=== PATIENT | female | born 1985 | race American Indian/Alaskan Native ===

== ENCOUNTER 2016-07-31 12:28 | Emergency (ER) | payer SELFPAY | END 2016-07-31 13:20 | disposition left against medical advice (07) | LOC: ED 12:28 | DX: Z46.6 Encounter for fitting and adjustment of urinary device (principal); Z53.21 Procedure and treatment not carried out due to patient leaving prior to being seen by health care provider ==

== ENCOUNTER 2017-06-27 12:15 | Outpatient (CLI) | payer MEDICAID ==
[2017-06-27 13:25] LABS: ISTAT Base Excess 3; ISTAT DEVICE 0; ISTAT HCO3 26.8; ISTAT PCO2 35.6 (35-45); ISTAT PH 7.483 (7.35-7.45); ISTAT PO2 77 (80-105); ISTAT SO2 96; ISTAT TCO2 28
--- NOTE | 2017-06-27 16:24 | XRay Report ---
FINAL REPORT EXAM: XR CHEST ROUTINE 2V HISTORY: OBESITY/PRE-OP TECHNIQUE: PA and lateral views of the chest. The PA views are lordotic in position. PRIORS: None. FINDINGS: Lines, tubes, and devices: Right jugular catheter terminates in the proximal superior vena cava. Lungs and pleura: Trachea is normal in position. Lungs are clear of infiltrate, pleural effusion, vascular congestion, or pneumothorax. Cardiomediastinal silhouette: Cardiac and mediastinal silhouettes are unremarkable. Other: Bony structures are intact. IMPRESSION: No acute cardiopulmonary process seen.
== END 2017-06-27 12:16 | disposition home or self-care (01) ==
LOC: XRAY 12:15
PROVIDERS: ATTEND Internal Medicine Critical Care Medicine
DX: Z01.818 Encounter for other preprocedural examination (principal); E66.9 Obesity, unspecified
CPT/HCPCS: 36600; 71020; 82803

== ENCOUNTER 2017-08-17 20:40 | Emergency (ER) | payer MEDICAID ==
[2017-08-17 22:25] VITALS: BP 156/90
--- NOTE | 2017-08-18 00:23 | Emergency Department Report ---
ED Female HPI - General Chief complaint: Back Pain/Injury Stated complaint: PAIN IN SIDE Time Seen by Provider: 08/18/17 00:04 Source: patient Mode of arrival: Ambulatory Limitations: Physical Limitation - History of Present Illness Initial comments: Patient here reports that she has a strong smelling odor and she wears a Mercado catheter. Patient with a history of spina bifida with Mercado catheter due to chronic urinary incontinence. Patient reports that she had the catheter in and she's been having left flank pain that is 9 out of 10 and concern for urinary tract infection. She reports that she took catheter out. Denies any nausea or vomiting. Denies any abdominal pain. Denies any trauma. Denies any fever or chills. Denies urinary burning frequency or urgency. She does have a primary care doctor that she follows MD Complaint: other (left flank pain and foul-smelling urine) Onset/Timin -: days(s) Location: other (flank) Radiation: non-radiating Severity: severe Severity scale (0 -10): 9 Quality: dull, aching Consistency: constant Improves with: none Worsens with: none Are you Now?: No Associated Symptoms: denies: vaginal discharge, vaginal bleeding, abdominal pain , nausea/vomiting, fever/chills, headaches, loss of appetite, dysuria, hematuria , rash, seizure, shortness of breath, syncope, weakness - Related Data Sexually active: No Home Medications Medication Instructions Recorded Confirmed Last Taken Insulin Lispro [Humalog 100 3 units SQ AC 08/13/15 08/13/15 08/13/15 UNITS/ML Kwikpen] Levemir Flextouch 30 units SQ HS 08/13/15 08/13/15 08/12/15 Lisinopril [Zestril TAB] 10 mg PO QDAY 08/13/15 08/13/15 08/13/15 metFORMIN [Glucophage] 500 mg PO BID 08/13/15 08/13/15 08/13/15 Previous Rx's Medication Instructions Recorded Last Taken Type Cephalexin [Keflex] 500 mg PO Q12HR #40 cap 10/14/15 Unknown Rx Sulfamethoxazole/Trimethoprim 1 each PO BID #14 tablet 10/14/15 Unknown Rx [Bactrim DS TAB] Sulfamethoxazole/Trimethoprim 1 each PO BID 7 Days #14 tablet 08/18/17 Unknown Rx [Bactrim DS TAB] Allergies Allergy/AdvReac Type Severity Reaction Status Date / Time No Known Allergies Allergy Unverified 08/13/15 13:07 ED Review of Systems ROS: Stated complaint: PAIN IN SIDE Other details as noted in HPI Comment: All other systems reviewed and negative Constitutional: no symptoms reported Respiratory: no symptoms reported Cardiovascular: denies: chest pain, palpitations, dyspnea on exertion, edema, syncope, paroxysmal nocturnal dyspnea Gastrointestinal: denies: abdominal pain, nausea, vomiting, diarrhea, constipation Genitourinary: other (reports chronic Mercado catheter with left flank pain and foul-smelling urine). denies: urgency, dysuria, frequency, hematuria, discharge Musculoskeletal: back pain. denies: joint swelling, arthralgia, myalgia Skin: denies: rash Neurological: other (patient is wheelchair bound). denies: headache ED Past Medical Hx - Past Medical History Previous Medical History?: Yes Hx Hypertension: Yes Hx Diabetes: Yes Additional medical history: Spina bifida; patient's has mercado cath - Surgical History Past Surgical History?: Yes Additional Surgical History: Left below knee amputation - Family History Family history: hypertension - Social History Smoking Status: Never Smoker Substance Use Type: Alcohol - Medications Home Medications: Home Medications Medication Instructions Recorded Confirmed Last Taken Type Insulin Lispro [Humalog 100 3 units SQ AC 08/13/15 08/13/15 08/13/15 History UNITS/ML Kwikpen] Levemir Flextouch 30 units SQ HS 08/13/15 08/13/15 08/12/15 History Lisinopril [Zestril TAB] 10 mg PO QDAY 08/13/15 08/13/15 08/13/15 History metFORMIN [Glucophage] 500 mg PO BID 08/13/15 08/13/15 08/13/15 History Cephalexin [Keflex] 500 mg PO Q12HR #40 cap 10/14/15 Unknown Rx Sulfamethoxazole/Trimethoprim 1 each PO BID #14 tablet 10/14/15 Unknown Rx [Bactrim DS TAB] Sulfamethoxazole/Trimethoprim 1 each PO BID 7 Days #14 tablet 08/18/17 Unknown Rx [Bactrim DS TAB] ED Physical Exam - General Limitations: Physical Limitation General appearance: alert, in no apparent distress - Head Head exam: Present: atraumatic, normocephalic, normal inspection - Eye Eye exam: Present: normal appearance, PERRL, EOMI Pupils: Present: normal accommodation - ENT ENT exam: Present: normal exam, normal orophraynx, mucous membranes moist - Respiratory Respiratory exam: Present: normal lung sounds bilaterally. Absent: respiratory distress, chest wall tenderness - Cardiovascular Cardiovascular Exam: Present: regular rate, normal rhythm, normal heart sounds. Absent: systolic murmur, diastolic murmur - GI/Abdominal GI/Abdominal exam: Present: soft, normal bowel sounds. Absent: distended, tenderness, guarding, rebound, rigid - Extremities Exam Extremities exam: Present: normal inspection, full ROM, normal capillary refill , other (no clubbing, cyanosis or edema. +2+ distal extremities.). Absent: tenderness, pedal edema, joint swelling, calf tenderness - Back Exam Back exam: Present: normal inspection, other (patient is wheelchair-bound). Absent: CVA tenderness (R), CVA tenderness (L), muscle spasm, paraspinal tenderness, vertebral tenderness, rash noted - Neurological Exam Neurological exam: Present: alert, oriented X3, other (wheelchair-bound) - Psychiatric Psychiatric exam: Present: normal affect, normal mood - Skin Skin exam: Present: warm, dry, intact, normal color. Absent: rash ED Course Vital Signs 08/17/17 22:16 Temperature 97.9 F Pulse Rate 84 Respiratory 16 Rate Blood Pressure 156/90 O2 Sat by Pulse 96 Oximetry - Reevaluation(s) Reevaluation #1: 08/18/17 03:17 Still awaiting urinalysis. Mercado catheter placed. Reevaluation #2: 08/18/17 03:25 Is given Rocephin 1 g IM in emergency room and Noel 5/325 2 tablets back pain. No adverse reaction. ED Medical Decision Making - Lab Data Lab Results 08/18/17 Range/Units Unknown Urine Color Yellow (Yellow) Urine Turbidity Clear (Clear) Urine pH 6.0 (5.0-7.0) Ur Specific [place] 1.005 (1.003-1.030) Urine Protein <15 mg/dl (Negative) mg/dL Urine Glucose (UA) Neg (Negative) mg/dL Urine Ketones Neg (Negative) mg/dL Urine Blood Mod (Negative) Urine Nitrite Neg (Negative) Urine Bilirubin Neg (Negative) Urine Urobilinogen < 2.0 (<2.0) mg/dL Ur Leukocyte Esterase Lg (Negative) Urine WBC (Auto) 25.0 H (0.0-6.0) /HPF Urine RBC (Auto) 1.0 (0.0-6.0) /HPF U Epithel Cells (Auto) 1.0 (0-13.0) /HPF Urine Bacteria (Auto) 3+ (Negative) /HPF Urine culture sent and pending - Medical Decision Making ED course: Pt reports foul-smelling urine with left flank pain. Urinalysis with large amount of leukocyte Estrace, positive white blood cells and positive bacteria with moderate amount of blood. Patient without any nausea or vomiting , no fever or chills. No abdominal pain and no CVA tenderness. I discussed the patient that she has a urinary tract infection and will be treated with Bactrim DS which she said works for her. She last took an 2016. Mrecado catheter placed. Urine culture pending. I discussed the patient that she needs to follow up with her primary care physician in 2-3 days. Patient given Rocephin 1 g IM in emergency room and discharged home from ED in stable condition with prescription for Bactrim DS. Critical care attestation.: If time is entered above; I have spent that time in minutes in the direct care of this critically ill patient, excluding procedure time. ED Disposition Clinical Impression: Acute cystitis with hematuria, Left flank pain, Encounter for Mercado catheter replacement Disposition: DC- TO HOME OR SELFCARE Is pt being admited?: No Does the pt Need Aspirin: No Condition: Stable Instructions: Urinary Tract Infection in Women (ED), Mercado Catheter Placement and Care (ED) Additional Instructions: Please increase her fluid intake to 2-3 L of Take Bactrim as prescribed for urinary tract infection Follow-up with your primary care physician in 2-3 days Diffuse symptoms worsens, increase in flank pain, fever and/or chills, nausea vomiting and abdominal pain. Return to the emergency room. Prescriptions: Sulfamethoxazole/Trimethoprim [Bactrim DS TAB] 1 each PO BID 7 Days #14 tablet Referrals: PRIMARY CARE, [Primary Care Provider] - 2-3 Days
[2017-08-18 03:14] LABS: Bacteria,Urine 3+ /HPF (Negative); Bilirubin,Urine NEG (Negative); Blood,Urine MOD (Negative); Color,Urine Yellow (Yellow); Nitrite,Urine NEG (Negative); Protein,Urine <15 mg/dL mg/dL (Negative); Urobilinogen,Urine < 2.0 mg/dL (<2.0)
[2017-08-18] MEDS ORDERED: NORCO 5/325 PO ONE (03:23)
[2017-08-18] MEDS ORDERED: XYLOCAINE 1% MPF 5 mL INFILTRATI ONE (03:23)
[2017-08-18] MEDS ORDERED: ROCEPHIN IM STA (03:23)
== END 2017-08-18 03:50 | disposition home or self-care (01) ==
LOC: ED 20:40
DX: N30.01 Acute cystitis with hematuria (principal); R10.30 Lower abdominal pain, unspecified; I10 Essential (primary) hypertension; E11.9 Type 2 diabetes mellitus without complications
CPT/HCPCS: 51702; 81001; 87086; 96372; 99283; J0696

== ENCOUNTER 2017-11-09 10:15 | Emergency (ER) | payer MEDICAID ==
[2017-11-09 10:32] VITALS: BP 153/82
--- NOTE | 2017-11-09 12:02 | Emergency Department Report ---
ED General Adult HPI - General Chief complaint: Medical Clearance Stated complaint: CATHETER PLACEMENT Time Seen by Provider: 11/09/17 11:57 Source: patient Mode of arrival: Ambulatory Limitations: Physical Limitation - History of Present Illness Initial comments: 32-year-old [place] female past medical history spina bifida with urinary incontinence reports that she needs her Mercado changed. Patient reports that she is urinating around the catheter for the last month and her last change of her Mercado catheter was 2 months ago. Patient reports that her supplies did not come in time for her last nurse visit therefore she was not able to get her Mercado catheter changed. Patient denies any nausea no vomiting no fever no chills no abdominal pain and pelvic pain. - Related Data Home Medications Medication Instructions Recorded Confirmed Last Taken Insulin Lispro [Humalog 100 3 units SQ AC 08/13/15 08/13/15 08/13/15 UNITS/ML Kwikpen] Levemir Flextouch 30 units SQ HS 08/13/15 08/13/15 08/12/15 Lisinopril [Zestril TAB] 10 mg PO QDAY 08/13/15 08/13/15 08/13/15 metFORMIN [Glucophage] 500 mg PO BID 08/13/15 08/13/15 08/13/15 Previous Rx's Medication Instructions Recorded Last Taken Type Cephalexin [Keflex] 500 mg PO Q12HR #40 cap 10/14/15 Unknown Rx Sulfamethoxazole/Trimethoprim 1 each PO BID #14 tablet 10/14/15 Unknown Rx [Bactrim DS TAB] Sulfamethoxazole/Trimethoprim 1 each PO BID 7 Days #14 tablet 08/18/17 Unknown Rx [Bactrim DS TAB] Allergies Allergy/AdvReac Type Severity Reaction Status Date / Time No Known Allergies Allergy Unverified 08/13/15 13:07 ED Review of Systems ROS: Stated complaint: CATHETER PLACEMENT Other details as noted in HPI Constitutional: denies: chills, fever Eyes: denies: eye pain, eye discharge, vision change ENT: denies: ear pain, throat pain Respiratory: denies: cough, shortness of breath, wheezing Cardiovascular: denies: chest pain, palpitations Endocrine: no symptoms reported Gastrointestinal: denies: abdominal pain, nausea, diarrhea Genitourinary: other (urinary incontinent). denies: urgency, dysuria, discharge Musculoskeletal: denies: back pain, joint swelling, arthralgia Skin: denies: rash, lesions Neurological: denies: headache, weakness, paresthesias Psychiatric: denies: anxiety, depression Hematological/Lymphatic: denies: easy bleeding, easy bruising ED Past Medical Hx - Past Medical History Hx Hypertension: Yes Hx Diabetes: Yes Hx Seizures: Yes Additional medical history: Spina bifida; patient's has mercado cath - Surgical History Additional Surgical History: Left below knee amputation - Social History Smoking Status: Never Smoker - Medications Home Medications: Home Medications Medication Instructions Recorded Confirmed Last Taken Type Insulin Lispro [Humalog 100 3 units SQ AC 08/13/15 08/13/15 08/13/15 History UNITS/ML Kwikpen] Levemir Flextouch 30 units SQ HS 08/13/15 08/13/15 08/12/15 History Lisinopril [Zestril TAB] 10 mg PO QDAY 08/13/15 08/13/15 08/13/15 History metFORMIN [Glucophage] 500 mg PO BID 08/13/15 08/13/15 08/13/15 History Cephalexin [Keflex] 500 mg PO Q12HR #40 cap 10/14/15 Unknown Rx Sulfamethoxazole/Trimethoprim 1 each PO BID #14 tablet 10/14/15 Unknown Rx [Bactrim DS TAB] Sulfamethoxazole/Trimethoprim 1 each PO BID 7 Days #14 tablet 08/18/17 Unknown Rx [Bactrim DS TAB] ED Physical Exam - General Limitations: Physical Limitation General appearance: alert, in no apparent distress - Head Head exam: Present: atraumatic, normocephalic - Eye Eye exam: Present: normal appearance - ENT ENT exam: Present: mucous membranes moist - Expanded Lower Extremity Exam Left Knee exam: Present: full ROM Lower Leg exam: Present: normal inspection (BKA left leg) - Neurological Exam Neurological exam: Present: alert, oriented X3 - Psychiatric Psychiatric exam: Present: normal affect, normal mood - Skin Skin exam: Present: warm, dry, intact, normal color. Absent: rash ED Course Vital Signs 11/09/17 10:29 Temperature 98.2 F Pulse Rate 83 Respiratory 16 Rate Blood Pressure 153/82 O2 Sat by Pulse 96 Oximetry ED Medical Decision Making - Medical Decision Making Patient has been interviewed by this provider fast track. I discussed with patient that we will change her Mercado catheter. We'll discharge her home to continue home health and follow with her primary care provider. Patient verbalized understanding Critical care attestation.: If time is entered above; I have spent that time in minutes in the direct care of this critically ill patient, excluding procedure time. ED Disposition Clinical Impression: Urinary incontinence, overflow Disposition: DC-01 TO HOME OR SELFCARE Is pt being admited?: No Does the pt Need Aspirin: No Condition: Stable Instructions: Urinary Incontinence (ED) Additional Instructions: Please follow-up with her home health nurse for continuation of care and Mercado changes. Referrals: PRIMARY CAREMD [Primary Care Provider] - 3-5 Days
== END 2017-11-09 12:34 | disposition home or self-care (01) ==
LOC: ED 10:15
DX: R32 Unspecified urinary incontinence (principal); I10 Essential (primary) hypertension; E11.9 Type 2 diabetes mellitus without complications
CPT/HCPCS: 51702; 99281

== ENCOUNTER 2017-11-26 15:13 | Emergency (ER) | payer MEDICAID ==
[2017-11-26 16:17] VITALS: BP 127/76
--- NOTE | 2017-11-26 18:58 | Emergency Department Report ---
ED General Adult HPI - General Chief complaint: Urogenital-Female Stated complaint: NEED MERCADO CATHETER REPLACED Time Seen by Provider: 11/26/17 18:51 Source: patient Mode of arrival: Wheelchair Limitations: Physical Limitation - History of Present Illness Initial comments: Is a 32-year-old Female who was born with spina bifida and has urinary incontinence who uses a Mercado catheter at baseline. Patient states Mercado catheter came out last night. Her home health agency was unable to come see her today and she is here requesting a catheter be replaced. Patient has no other complaints at this time. Patient states she's been incontinent throughout the day. - Related Data Home Medications Medication Instructions Recorded Confirmed Last Taken Insulin Lispro [Humalog 100 3 units SQ AC 08/13/15 08/13/15 08/13/15 UNITS/ML Kwikpen] Levemir Flextouch 30 units SQ HS 08/13/15 08/13/15 08/12/15 Lisinopril [Zestril TAB] 10 mg PO QDAY 08/13/15 08/13/15 08/13/15 metFORMIN [Glucophage] 500 mg PO BID 08/13/15 08/13/15 08/13/15 Previous Rx's Medication Instructions Recorded Last Taken Type Cephalexin [Keflex] 500 mg PO Q12HR #40 cap 10/14/15 Unknown Rx Sulfamethoxazole/Trimethoprim 1 each PO BID #14 tablet 10/14/15 Unknown Rx [Bactrim DS TAB] Sulfamethoxazole/Trimethoprim 1 each PO BID 7 Days #14 tablet 08/18/17 Unknown Rx [Bactrim DS TAB] Allergies Allergy/AdvReac Type Severity Reaction Status Date / Time No Known Allergies Allergy Unverified 08/13/15 13:07 ED Review of Systems ROS: Stated complaint: NEED MERCADO CATHETER REPLACED Other details as noted in HPI Comment: All other systems reviewed and negative ED Past Medical Hx - Past Medical History Previous Medical History?: Yes Hx Hypertension: Yes Hx Diabetes: Yes Hx Seizures: Yes Additional medical history: Spina bifida; patient's has mercado cath - Surgical History Past Surgical History?: Yes Additional Surgical History: Left below knee amputation - Social History Smoking Status: Never Smoker Substance Use Type: Alcohol, Prescribed - Medications Home Medications: Home Medications Medication Instructions Recorded Confirmed Last Taken Type Insulin Lispro [Humalog 100 3 units SQ AC 08/13/15 08/13/15 08/13/15 History UNITS/ML Kwikpen] Levemir Flextouch 30 units SQ HS 08/13/15 08/13/15 08/12/15 History Lisinopril [Zestril TAB] 10 mg PO QDAY 08/13/15 08/13/15 08/13/15 History metFORMIN [Glucophage] 500 mg PO BID 08/13/15 08/13/15 08/13/15 History Cephalexin [Keflex] 500 mg PO Q12HR #40 cap 10/14/15 Unknown Rx Sulfamethoxazole/Trimethoprim 1 each PO BID #14 tablet 10/14/15 Unknown Rx [Bactrim DS TAB] Sulfamethoxazole/Trimethoprim 1 each PO BID 7 Days #14 tablet 08/18/17 Unknown Rx [Bactrim DS TAB] ED Physical Exam - General Limitations: Physical Limitation General appearance: alert, in no apparent distress - Respiratory Respiratory exam: Absent: respiratory distress - Cardiovascular Cardiovascular Exam: Present: regular rate, normal rhythm - GI/Abdominal GI/Abdominal exam: Present: soft. Absent: distended ED Course Vital Signs 11/26/17 16:12 Temperature 98.2 F Pulse Rate 86 Respiratory 20 Rate Blood Pressure 127/76 O2 Sat by Pulse 98 Oximetry ED Medical Decision Making - Medical Decision Making She will have a Mercado catheter replaced by nursing staff be discharged home. Critical care attestation.: If time is entered above; I have spent that time in minutes in the direct care of this critically ill patient, excluding procedure time. ED Disposition Clinical Impression: Mercado catheter problem Disposition: - TO HOME OR SELFCARE Is pt being admited?: No Does the pt Need Aspirin: No Condition: Stable
== END 2017-11-26 19:20 | disposition home or self-care (01) ==
LOC: ED 15:13
DX: R32 Unspecified urinary incontinence (principal); I10 Essential (primary) hypertension; E11.9 Type 2 diabetes mellitus without complications; Z79.4 Long term (current) use of insulin
CPT/HCPCS: 51702; 99282

== ENCOUNTER 2018-07-28 22:47 | Emergency (ER) | payer MEDICAID ==
[2018-07-28] MEDS ORDERED: ZOFRAN IV ONE (23:07)
[2018-07-28] MEDS ORDERED: MORPHINE IV ONE (23:07)
--- NOTE | 2018-07-28 23:11 | Emergency Department Report ---
<KIMMY VALLE - Last Filed: 07/29/18 02:01> ED Abdominal Pain HPI - General Stated Complaint: LT SIDED FLANK PAIN Time Seen by Provider: 07/28/18 22:53 - History of Present Illness Initial Comments: Patient is 33 years old female with history of spina bifida, chronic Mercado catheter use for urinary incontinence. Patient presented to the ER complaining of left flank pain for the last 2-3 days. Patient stated that she is not producing enough urine. She denied any fever or chills. Patient also denied any nausea or vomiting. Patient stated that her catheter replaced a few days back. MD Complaint: flank pain -: days(s) Location: L flank Radiation: none Migration to: no migration Consistency: constant - Related Data Home Medications Medication Instructions Recorded Confirmed Last Taken Insulin Lispro [Humalog 100 3 units SQ AC 08/13/15 08/13/15 08/13/15 UNITS/ML Kwikpen] Levemir Flextouch 30 units SQ HS 08/13/15 08/13/15 08/12/15 Lisinopril [Zestril TAB] 10 mg PO QDAY 08/13/15 08/13/15 08/13/15 metFORMIN [Glucophage] 500 mg PO BID 08/13/15 08/13/15 08/13/15 Previous Rx's Medication Instructions Recorded Last Taken Type Sulfamethoxazole/Trimethoprim 1 each PO BID #14 tablet 10/14/15 Unknown Rx [Bactrim DS TAB] cephALEXin [Keflex] 500 mg PO Q12HR #40 cap 10/14/15 Unknown Rx Sulfamethoxazole/Trimethoprim 1 each PO BID 7 Days #14 tablet 08/18/17 Unknown Rx [Bactrim DS TAB] Ondansetron [Zofran Odt] 4 mg PO Q8HR PRN #14 tab.rapdis 07/29/18 Unknown Rx levoFLOXacin [Levaquin TAB] 500 mg PO QDAY #7 tablet 07/29/18 Unknown Rx traMADol [Ultram 50 MG tab] 50 mg PO Q4HR PRN #14 tablet 07/29/18 Unknown Rx Allergies Allergy/AdvReac Type Severity Reaction Status Date / Time No Known Allergies Allergy Verified 07/29/18 00:59 ED Review of Systems Comment: All other systems reviewed and negative Constitutional: denies: chills, fever Respiratory: denies: cough, orthopnea, shortness of breath, SOB with exertion, SOB at rest Cardiovascular: denies: chest pain, palpitations, dyspnea on exertion, orthopnea Gastrointestinal: abdominal pain. denies: nausea, vomiting, diarrhea, c onstipation, hematemesis, melena, hematochezia Musculoskeletal: back pain Neurological: denies: headache, weakness, numbness, paresthesias, confusion, abnormal gait ED Past Medical Hx - Past Medical History Hx Hypertension: Yes Hx Diabetes: Yes Hx Seizures: Yes Additional medical history: Spina bifida; patient's has mercado cath - Surgical History Additional Surgical History: Left below knee amputation - Social History Smoking Status: Never Smoker Substance Use Type: Alcohol, Prescribed - Medications Home Medications: Home Medications Medication Instructions Recorded Confirmed Last Taken Type Insulin Lispro [Humalog 100 3 units SQ AC 08/13/15 08/13/15 08/13/15 History UNITS/ML Kwikpen] Levemir Flextouch 30 units SQ HS 08/13/15 08/13/15 08/12/15 History Lisinopril [Zestril TAB] 10 mg PO QDAY 08/13/15 08/13/15 08/13/15 History metFORMIN [Glucophage] 500 mg PO BID 08/13/15 08/13/15 08/13/15 History Sulfamethoxazole/Trimethoprim 1 each PO BID #14 tablet 10/14/15 Unknown Rx [Bactrim DS TAB] cephALEXin [Keflex] 500 mg PO Q12HR #40 cap 10/14/15 Unknown Rx Sulfamethoxazole/Trimethoprim 1 each PO BID 7 Days #14 tablet 08/18/17 Unknown Rx [Bactrim DS TAB] Ondansetron [Zofran Odt] 4 mg PO Q8HR PRN #14 tab.rapdis 07/29/18 Unknown Rx levoFLOXacin [Levaquin TAB] 500 mg PO QDAY #7 tablet 07/29/18 Unknown Rx traMADol [Ultram 50 MG tab] 50 mg PO Q4HR PRN #14 tablet 07/29/18 Unknown Rx ED Physical Exam - General General appearance: alert, in no apparent distress, obese - Head Head exam: Present: atraumatic, normocephalic, normal inspection - Eye Eye exam: Present: normal appearance - ENT ENT exam: Present: normal exam, normal orophraynx, mucous membranes moist - Neck Neck exam: Present: normal inspection, full ROM. Absent: tenderness, meningismus, lymphadenopathy, thyromegaly - Respiratory Respiratory exam: Present: normal lung sounds bilaterally - Cardiovascular Cardiovascular Exam: Present: regular rate, normal rhythm, normal heart sounds - GI/Abdominal GI/Abdominal exam: Present: soft, normal bowel sounds. Absent: distended, tenderness, guarding, rebound, rigid - Extremities Exam Extremities exam: Present: normal inspection, full ROM, normal capillary refill - Back Exam Back exam: Present: CVA tenderness (L) - Neurological Exam Neurological exam: Present: alert, oriented X3 - Skin Skin exam: Present: warm, intact, normal color ED Medical Decision Making - Lab Data Result diagrams: 07/28/18 23:12 07/28/18 23:12 ED Disposition Clinical Impression: Acute flank pain, UTI (urinary tract infection) Disposition: - TO HOME OR SELFCARE Is pt being admited?: No Condition: Good Instructions: Urinary Tract Infection in Women (ED), Abdominal Pain (ED) Prescriptions: levoFLOXacin [Levaquin TAB] 500 mg PO QDAY #7 tablet Ondansetron [Zofran Odt] 4 mg PO Q8HR PRN #14 tab.rapdis PRN Reason: Nausea And Vomiting traMADol [Ultram 50 MG tab] 50 mg PO Q4HR PRN #14 tablet PRN Reason: Pain Referrals: PRIMARY CARE,MD [Primary Care Provider] - 3-5 Days <LEIDY DE SOUZA - Last Filed: 07/29/18 04:11> ED Review of Systems ROS: Stated complaint: LT SIDED FLANK PAIN Other details as noted in HPI ED Course Vital Signs 07/28/18 07/28/18 07/28/18 23:07 23:24 23:30 Temperature 100.9 F H Pulse Rate 118 H Blood Pressure 111/62 111/62 114/55 Blood Pressure [Right] O2 Sat by Pulse 100 89 Oximetry 07/28/18 07/28/18 07/28/18 23:36 23:45 23:57 Temperature Pulse Rate Blood Pressure 111/62 113/61 113/61 Blood Pressure [Right] O2 Sat by Pulse 90 87 91 Oximetry 07/29/18 07/29/18 07/29/18 00:00 00:15 00:30 Temperature Pulse Rate Blood Pressure 110/57 105/54 80/35 Blood Pressure [Right] O2 Sat by Pulse 95 91 Oximetry 07/29/18 07/29/18 07/29/18 01:15 01:45 02:35 Temperature Pulse Rate Blood Pressure 79/33 94/32 Blood Pressure 94/58 [Right] O2 Sat by Pulse 100 93 Oximetry 07/29/18 04:04 Temperature Pulse Rate 96 H Blood Pressure Blood Pressure [Right] O2 Sat by Pulse Oximetry - Reevaluation(s) Reevaluation #1: 07/29/18 04:10 Tachycardia resolved. Blood pressure in the mid to high 90s. CT scan suggests possible pyelonephritis. In addition, there was a malpositioned Mercado catheter. Nursing team has repositioned the Mercado catheter, with improvement in drainage, patient resting comfortable me at this point in time, and reports that she feels much more comfortable. Her previous physician, , has written the patient for pain medication, nausea medication, antibiotic therapy, and the patient will be discharged with instructions to follow up. Patient is observed in the emergency room for hours without clinical decompensation at this point in time. ED Medical Decision Making - Lab Data Result diagrams: 07/28/18 23:12 07/28/18 23:12 Critical care attestation.: If time is entered above; I have spent that time in minutes in the direct care of this critically ill patient, excluding procedure time. ED Disposition Is pt being admited?: No Does the pt Need Aspirin: No
[2018-07-28 23:31] LABS: Hematocrit 40.7 % (30.3-42.9); Hemoglobin 13.1 gm/dl (10.1-14.3); Mean Corpuscular HGB Conc 32 % (30-34); Mean Corpuscular Volume 76 fl (79-97); Platelet Count 162 K/mm3 (140-440); Red Blood Count 5.36 M/mm3 (3.65-5.03); Red Cell Distribution Width 18.5 % (13.2-15.2)
[2018-07-28 23:49] LABS: Alanine Aminotransferase 14 units/L (7-56); BUN/Creatinine Ratio 28; Blood Urea Nitrogen 17 mg/dL (7-17); Calcium 9.5 mg/dL (8.4-10.2); Hemolysis Index 19
[2018-07-28 23:54] LABS: Bilirubin,Direct < 0.2 mg/dL (0-0.2)
[2018-07-29 00:53] LABS: Amorphous Crystals,Urine Few; Bilirubin,Urine NEG (Negative); Blood,Urine LG (Negative); Color,Urine Yellow (Yellow); Mucus,Urine FEW /HPF
[2018-07-29] MEDS ORDERED: ROCEPHIN/NS 1 GM/50 ML 1 GM/50 ML BAG IV ONE (00:56)
[2018-07-29] MEDS ORDERED: NACL 0.9% 1000 ML 1,000 ML IV ONE (01:17)
[2018-07-29] MEDS ORDERED: NACL 0.9% 1000 ML 2,000 ML ONE (01:21)
[2018-07-29 01:28] LABS: Anisocytosis 1+; Band Neutrophils # (Manual) 0.1 K/mm3; Basophils % (Manual) 0 % (0.0-1.8); Eosinophils % (Manual) 0 % (0.0-4.3); Hypochromasia 1+; Large Platelets 1+; Monocytes % (Manual) 0 % (0.0-7.3); Total Cells Counted 100
[2018-07-29 01:29] LABS: Platelet Estimate Consistent w Auto; Poikilocytosis 1+
[2018-07-29] MEDS ORDERED: TYLENOL PO ONE (01:35)
--- NOTE | 2018-07-29 02:35 | Cat Scan Report ---
FINAL REPORT PROCEDURE: CT ABDOMEN PELVIS WO CON TECHNIQUE: Computerized axial tomography of the abdomen and pelvis was performed without intravenous contrast. This study is performed without intravascular contrast material and its sensitivity for ab dominal and pelvic pathology, including neoplasms, inflammation, abscess, free fluid, thrombosis, art erial dissection and infarction, is reduced compared with a contrast enhanced study. HISTORY: ABDOMINAL PAIN/ left flank pain COMPARISON: No prior studies are available for comparison. FINDINGS: Visualized lower thorax: No significant abnormality. Liver: Normal size and attenuation. Spleen: Normal size and attenuation. Gallbladder and biliary system: Normal. Pancreas: Normal. Adrenals: Normal. Kidneys: The right kidney is unremarkable. There is diffuse enlargement of the left kidney with possi ble hydronephrosis and hydroureter. No stones are identified. Left renal mass or pyelonephritis not e xcluded.. GI tract: There is no bowel obstruction, colitis or enteritis. The appendix is not identified.. Lymph nodes and mesentery: Normal. Vasculature: Normal. Bladder: There is a Moura catheter in the urinary bladder. The tip of the catheter extends to the lef t ureterovesical junction. This could be causing obstruction of the distal left ureter.. Reproductive organs: Uterus and ovaries are unremarkable. Peritoneum: There is no ascites or free air, abscess or adenopathy.. Musculoskeletal structures: No significant abnormality. Other: None. IMPRESSION: The right kidney is unremarkable. There is diffuse enlargement of the left kidney with possible hydronephrosis and hydroureter. No ston es are identified. Left renal mass or pyelonephritis not excluded.. There is no bowel obstruction, colitis or enteritis. The appendix is not identified.. There is a Moura catheter in the urinary bladder. The tip of the catheter extends to the left uretero vesical junction. This could be causing obstruction of the distal left ureter.. Uterus and ovaries are unremarkable. There is no ascites or free air, abscess or adenopathy. .
[2018-07-29 03:31] VITALS: BP 94/58
== END 2018-07-29 07:00 | disposition home or self-care (01) ==
LOC: ED 22:47
DX: N39.0 Urinary tract infection, site not specified (principal); I10 Essential (primary) hypertension; E11.9 Type 2 diabetes mellitus without complications; Z79.4 Long term (current) use of insulin; Z89.512 Acquired absence of left leg below knee
CPT/HCPCS: 36415; 74176; 80048; 80076; 81001; 82140; 84703; 85007; 85025; 96365; 96375; 99284; J0696; J2270; J2405; J7030

== ENCOUNTER 2019-02-13 12:44 | Emergency (ER) | payer MEDICAID ==
[2019-02-13 13:02] VITALS: BP 147/80
--- NOTE | 2019-02-13 13:04 | Event Note ---
Date: 02/13/19 33 y.o with h/o spina bifida, Morbid obesity. dm2, incontinence and mercado dependent, presents to ER with the chief complaint that her current mercado catheter is no longer working. She suspects it is defective because her urine is leaking around it. It was last put in 3 months ago. Patient was discharged from her home health company that usually changes her catheter. no fever, chills or flank pain. The initial assessment/diagnostic orders/clinical plan/treatment(s) is/are subject to change based on patient's health status,clinical progression and re- assessment by fellow clinical providers in the ED. Further treatment and workup at subsequent clinical providers discretion. Patient/guardian urged not to elope from the ED as their condition may be serious if not clinically assessed and managed.
--- NOTE | 2019-02-13 13:56 | Emergency Department Report ---
ED Female HPI - General Chief complaint: Urogenital-Female Stated complaint: NEED REYES CATH Time Seen by Provider: 02/13/19 13:46 Source: patient Mode of arrival: Ambulatory Limitations: No Limitations - History of Present Illness Initial comments: Mrs. Beverly is a 33 yo female with history of severe obesity, diabetes mellitus, urinary incontinence, spina bifida who presents with leakage around her chronic indwelling Reyes catheter. She is followed by urologist at the [facility]. She is currently undergoing evaluation for suprapubic catheter. She has been discharged from her home health [employer]. This company usually changes the Reyes Catheter. She denies fever chills or back pain. MD Complaint: other (leaking around catheter) -: Gradual, days(s) (several) Severity: mild Consistency: constant - Related Data Home Medications Medication Instructions Recorded Confirmed Last Taken Insulin Lispro [Humalog 100 3 units SQ AC 08/13/15 08/13/15 08/13/15 UNITS/ML Kwikpen] Levemir Flextouch 30 units SQ HS 08/13/15 08/13/15 08/12/15 Lisinopril [Zestril TAB] 10 mg PO QDAY 08/13/15 08/13/15 08/13/15 metFORMIN [Glucophage] 500 mg PO BID 08/13/15 08/13/15 08/13/15 Previous Rx's Medication Instructions Recorded Last Taken Type Sulfamethoxazole/Trimethoprim 1 each PO BID #14 tablet 10/14/15 Unknown Rx [Bactrim DS TAB] cephALEXin [Keflex] 500 mg PO Q12HR #40 cap 10/14/15 Unknown Rx Sulfamethoxazole/Trimethoprim 1 each PO BID 7 Days #14 tablet 08/18/17 Unknown Rx [Bactrim DS TAB] Ondansetron [Zofran Odt] 4 mg PO Q8HR PRN #14 tab.rapdis 07/29/18 Unknown Rx levoFLOXacin [Levaquin TAB] 500 mg PO QDAY #7 tablet 07/29/18 Unknown Rx traMADol [Ultram 50 MG tab] 50 mg PO Q4HR PRN #14 tablet 07/29/18 Unknown Rx Allergies Allergy/AdvReac Type Severity Reaction Status Date / Time No Known Allergies Allergy Verified 07/29/18 00:59 ED Review of Systems ROS: Stated complaint: NEED REYES CATH Other details as noted in HPI Constitutional: denies: fever, malaise Gastrointestinal: denies: abdominal pain, nausea, vomiting Genitourinary: denies: as per HPI, urgency, dysuria, frequency, hematuria, discharge Musculoskeletal: denies: back pain Skin: denies: rash, lesions Neurological: denies: headache, weakness ED Past Medical Hx - Past Medical History Previous Medical History?: Yes Hx Hypertension: Yes Hx Diabetes: Yes Hx Seizures: Yes Additional medical history: Spina bifida; patient's has reyes cath - Surgical History Past Surgical History?: Yes Additional Surgical History: Left below knee amputation - Social History Smoking Status: Never Smoker Substance Use Type: Alcohol - Medications Home Medications: Home Medications Medication Instructions Recorded Confirmed Last Taken Type Insulin Lispro [Humalog 100 3 units SQ AC 08/13/15 08/13/15 08/13/15 History UNITS/ML Kwikpen] Levemir Flextouch 30 units SQ HS 08/13/15 08/13/15 08/12/15 History Lisinopril [Zestril TAB] 10 mg PO QDAY 08/13/15 08/13/15 08/13/15 History metFORMIN [Glucophage] 500 mg PO BID 08/13/15 08/13/15 08/13/15 History Sulfamethoxazole/Trimethoprim 1 each PO BID #14 tablet 10/14/15 Unknown Rx [Bactrim DS TAB] cephALEXin [Keflex] 500 mg PO Q12HR #40 cap 10/14/15 Unknown Rx Sulfamethoxazole/Trimethoprim 1 each PO BID 7 Days #14 tablet 08/18/17 Unknown Rx [Bactrim DS TAB] Ondansetron [Zofran Odt] 4 mg PO Q8HR PRN #14 tab.rapdis 07/29/18 Unknown Rx levoFLOXacin [Levaquin TAB] 500 mg PO QDAY #7 tablet 07/29/18 Unknown Rx traMADol [Ultram 50 MG tab] 50 mg PO Q4HR PRN #14 tablet 07/29/18 Unknown Rx ED Physical Exam - General Limitations: No Limitations General appearance: alert, in no apparent distress, other (sitting in wheelchair) - Head Head exam: Present: atraumatic, normocephalic - Eye Eye exam: Present: normal appearance - ENT ENT exam: Present: mucous membranes moist - Respiratory Respiratory exam: Absent: respiratory distress - Neurological Exam Neurological exam: Present: alert, oriented X3 - Psychiatric Psychiatric exam: Present: normal affect, normal mood - Skin Skin exam: Present: warm, dry, intact, normal color. Absent: rash ED Course Vital Signs 02/13/19 13:00 Temperature 97.9 F Pulse Rate 93 H Respiratory 18 Rate Blood Pressure 147/80 O2 Sat by Pulse 94 Oximetry ED Medical Decision Making - Medical Decision Making Our nursing staff changed reyes catheter in ED. Given referral to urologist. Suspect obstructive Reyes catheter or damaged ballon as the cause of leakage Critical care attestation.: If time is entered above; I have spent that time in minutes in the direct care of this critically ill patient, excluding procedure time. ED Disposition Clinical Impression: Indwelling Reyes catheter present, Reyes catheter problem Disposition: - TO HOME OR SELFCARE Is pt being admited?: No Does the pt Need Aspirin: No Condition: Stable Instructions: Reyes Catheter Placement and Care (ED) Referrals: RENEE SANCHEZ MD [Staff Physician] - 3-5 Days
== END 2019-02-13 15:42 | disposition home or self-care (01) ==
LOC: ED 12:44
DX: T83.038A Leakage of other urinary catheter, initial encounter (principal); I10 Essential (primary) hypertension; E11.9 Type 2 diabetes mellitus without complications; Z98.890 Other specified postprocedural states; Z79.899 Other long term (current) drug therapy; Y92.89 Other specified places as the place of occurrence of the external cause
CPT/HCPCS: 51702; 99282

== ENCOUNTER 2019-08-28 17:22 | Emergency (ER) | payer MEDICAID ==
--- NOTE | 2019-08-28 20:21 | Emergency Department Report ---
Chief Complaint: Urogenital-Female Stated Complaint: NO MERCADO FOR 4DAYS - HPI History of Present Illness: The pt is a 34 y/o F p/w a cc of "needing fol3ey." The pt states she has a h/o urinary incontinence and has an indwelling mercado that was accidently pulled out 08/24/2019. The pt states is was an 18fr mercado but she needs a larger balloon size. The pt states she was having difficulty getting a new Mercado catheter through her home health nurse - Exam Vital Signs: Vital Signs 08/28/19 20:20 Temperature 97.5 F L Pulse Rate 86 Respiratory 20 Rate Blood Pressure 137/91 O2 Sat by Pulse 97 Oximetry MSE screening note: Focused history and physical exam performed. Due to findings the following was ordered: u/a, uhcg Mercado ED Disposition for MSE Condition: Stable
[2019-08-28 20:23] VITALS: BP 137/91
--- NOTE | 2019-08-28 23:14 | Emergency Department Report ---
ED Female HPI - General Chief complaint: Urogenital-Female Stated complaint: NO MERCADO FOR 4DAYS Time Seen by Provider: 08/28/19 22:13 Source: patient Mode of arrival: Ambulatory Limitations: No Limitations - History of Present Illness Initial comments: Patient is a 34-year-old [place] female who has a past medical history of spina bifida who is wheelchair dependent who is presenting with urinary incontinence. Patient normally uses a Mercdao catheter to drain her urine. Patient states FELL OUT 4 DAYS AGO AND SHE'S BEEN UNABLE TO GET A HOME HEALTH AGENCY TO COME HELP HER REPLACE IT. PATIENT IS UNABLE TO STRAIGHT CATH HERSELF AT HOME. PATIENT DENIES ANY PAIN NAUSEA VOMITING, COLD CONGESTION OR ABDOMINAL PAIN. PATIENT DOES HAVE SOME IRRITATION AND SKIN BREAKDOWN SECONDARY TO URINE SOAKED INTO HER CLOTHING AND ON HER WHEELCHAIR. - Related Data Home Medications Medication Instructions Recorded Confirmed Last Taken Insulin Lispro [Humalog 100 3 units SQ AC 08/13/15 08/13/15 08/13/15 UNITS/ML Kwikpen] Levemir Flextouch 30 units SQ HS 08/13/15 08/13/15 08/12/15 lisinopriL [Zestril TAB] 10 mg PO QDAY 08/13/15 08/13/15 08/13/15 metFORMIN [Glucophage] 500 mg PO BID 08/13/15 08/13/15 08/13/15 Previous Rx's Medication Instructions Recorded Last Taken Type Sulfamethoxazole/Trimethoprim 1 each PO BID #14 tablet 10/14/15 Unknown Rx [Bactrim DS TAB] cephALEXin [Keflex] 500 mg PO Q12HR #40 cap 10/14/15 Unknown Rx Sulfamethoxazole/Trimethoprim 1 each PO BID 7 Days #14 tablet 08/18/17 Unknown Rx [Bactrim DS TAB] Ondansetron [Zofran Odt] 4 mg PO Q8HR PRN #14 tab.rapdis 07/29/18 Unknown Rx levoFLOXacin [Levaquin TAB] 500 mg PO QDAY #7 tablet 07/29/18 Unknown Rx traMADoL [Ultram 50 MG tab] 50 mg PO Q4HR PRN #14 tablet 07/29/18 Unknown Rx cephALEXin [Keflex] 500 mg PO TID 10 Days #30 cap 02/13/19 Unknown Rx Allergies Allergy/AdvReac Type Severity Reaction Status Date / Time No Known Allergies Allergy Verified 07/29/18 00:59 ED Review of Systems ROS: Stated complaint: NO MERCADO FOR 4DAYS Other details as noted in HPI Comment: All other systems reviewed and negative ED Past Medical Hx - Past Medical History Previous Medical History?: Yes Hx Hypertension: Yes Hx Diabetes: Yes Hx Seizures: Yes Additional medical history: Spina bifida; patient's has mercado cath, MORBID OBESITY - Surgical History Past Surgical History?: Yes Additional Surgical History: Left below knee amputation - Social History Smoking Status: Never Smoker Substance Use Type: None - Medications Home Medications: Home Medications Medication Instructions Recorded Confirmed Last Taken Type Insulin Lispro [Humalog 100 3 units SQ AC 08/13/15 08/13/15 08/13/15 History UNITS/ML Kwikpen] Levemir Flextouch 30 units SQ HS 08/13/15 08/13/15 08/12/15 History lisinopriL [Zestril TAB] 10 mg PO QDAY 08/13/15 08/13/15 08/13/15 History metFORMIN [Glucophage] 500 mg PO BID 08/13/15 08/13/15 08/13/15 History Sulfamethoxazole/Trimethoprim 1 each PO BID #14 tablet 10/14/15 Unknown Rx [Bactrim DS TAB] cephALEXin [Keflex] 500 mg PO Q12HR #40 cap 10/14/15 Unknown Rx Sulfamethoxazole/Trimethoprim 1 each PO BID 7 Days #14 tablet 08/18/17 Unknown Rx [Bactrim DS TAB] Ondansetron [Zofran Odt] 4 mg PO Q8HR PRN #14 tab.rapdis 07/29/18 Unknown Rx levoFLOXacin [Levaquin TAB] 500 mg PO QDAY #7 tablet 07/29/18 Unknown Rx traMADoL [Ultram 50 MG tab] 50 mg PO Q4HR PRN #14 tablet 07/29/18 Unknown Rx cephALEXin [Keflex] 500 mg PO TID 10 Days #30 cap 02/13/19 Unknown Rx ED Physical Exam - General Limitations: No Limitations General appearance: alert, in no apparent distress - Head Head exam: Present: atraumatic, normocephalic - Eye Eye exam: Present: normal appearance - ENT ENT exam: Present: mucous membranes moist - Neck Neck exam: Present: normal inspection - Respiratory Respiratory exam: Present: normal lung sounds bilaterally. Absent: respiratory distress, wheezes, rales, rhonchi - Cardiovascular Cardiovascular Exam: Present: regular rate, normal rhythm. Absent: systolic murmur, diastolic murmur, rubs, gallop - GI/Abdominal GI/Abdominal exam: Present: soft, normal bowel sounds - Extremities Exam Extremities exam: Present: normal inspection - Back Exam Back exam: Present: normal inspection - Neurological Exam Neurological exam: Present: alert, oriented X3 - Psychiatric Psychiatric exam: Present: normal affect, normal mood - Skin Skin exam: Present: warm, dry, intact, normal color. Absent: rash ED Course Vital Signs 08/28/19 20:20 Temperature 97.5 F L Pulse Rate 86 Respiratory 20 Rate Blood Pressure 137/91 O2 Sat by Pulse 97 Oximetry ED Medical Decision Making - Medical Decision Making We were able to locate a Mercado catheter that was suitable for this patient. Patient does require larger balloon then what is presented in the standard Mercado catheter kit. Patient had a Mercado catheter replaced our nursing staff. Please see their documentation on the catheter placement. Patient to be discharged home in stable condition. Critical care attestation.: If time is entered above; I have spent that time in minutes in the direct care of this critically ill patient, excluding procedure time. ED Disposition Clinical Impression: Urinary incontinence due to severe physical disability Mercado catheter problem Qualifiers: Encounter type: initial encounter Qualified Code(s): T83.9XXA - Unspecified complication of genitourinary prosthetic device, implant and graft, initial encounter Disposition: DC-01 TO HOME OR SELFCARE Is pt being admited?: No Does the pt Need Aspirin: No Condition: Stable Referrals: ALEX EID MD [Primary Care Provider] - 3-5 Days Time of Disposition: 00:07
== END 2019-08-29 00:15 | disposition home or self-care (01) ==
LOC: ED 17:22
DX: R32 Unspecified urinary incontinence (principal); T83.098A Other mechanical complication of other urinary catheter, initial encounter; I10 Essential (primary) hypertension; E11.9 Type 2 diabetes mellitus without complications; E66.01 Morbid (severe) obesity due to excess calories; Z68.45 Body mass index [BMI] 70 or greater, adult; Z79.899 Other long term (current) drug therapy
CPT/HCPCS: 51702

== ENCOUNTER 2019-12-16 12:56 | Emergency (ER) | payer MEDICAID ==
[2019-12-16 13:51] VITALS: BP 153/56
--- NOTE | 2019-12-16 14:20 | Emergency Department Report ---
ED Female HPI - General Chief complaint: Urogenital-Female Stated complaint: NEEDS REYES INSERTED Time Seen by Provider: 12/16/19 14:16 Source: patient Mode of arrival: Wheelchair Limitations: Physical Limitation - History of Present Illness Initial comments: Ms. Beverly is a very pleasant 34-year-old -Martiniquais female with past medical history of severe obesity, diabetes mellitus, spina bifida, urinary incontinence who presents to the emergency department seeking reinsertion of a form of a Reyes for which she usually has a chronic indwelling catheter. The Reyes catheter came out while she was at home after experiencing some leakage around the catheter. She is unsure if she has a ruptured balloon problem. She is followed by by the urologist at the [facility]. She reports no fever, chills, sweats,, flank pain, headache, rashes, dizziness but is suspicious of having a urinary tract infection and would like that to be treated or evaluated as well Consistency: constant Improves with: none Worsens with: none Are you Now?: No Associated Symptoms: denies: vaginal discharge, vaginal bleeding, abdominal pain, nausea/vomiting, headaches, loss of appetite, dysuria, hematuria, shortness of breath, syncope, weakness - Related Data Home Medications Medication Instructions Recorded Confirmed Last Taken Insulin Lispro [Humalog 100 3 units SQ AC 08/13/15 08/13/15 08/13/15 UNITS/ML Kwikpen] Levemir Flextouch 30 units SQ HS 08/13/15 08/13/15 08/12/15 lisinopriL [Zestril TAB] 10 mg PO QDAY 08/13/15 08/13/15 08/13/15 metFORMIN [Glucophage] 500 mg PO BID 08/13/15 08/13/15 08/13/15 Previous Rx's Medication Instructions Recorded Last Taken Type Sulfamethoxazole/Trimethoprim 1 each PO BID #14 tablet 10/14/15 Unknown Rx [Bactrim DS TAB] cephALEXin [Keflex] 500 mg PO Q12HR #40 cap 10/14/15 Unknown Rx Sulfamethoxazole/Trimethoprim 1 each PO BID 7 Days #14 tablet 08/18/17 Unknown Rx [Bactrim DS TAB] Ondansetron [Zofran Odt] 4 mg PO Q8HR PRN #14 tab.rapdis 07/29/18 Unknown Rx levoFLOXacin [Levaquin TAB] 500 mg PO QDAY #7 tablet 07/29/18 Unknown Rx traMADoL [Ultram 50 MG tab] 50 mg PO Q4HR PRN #14 tablet 07/29/18 Unknown Rx cephALEXin [Keflex] 500 mg PO TID 10 Days #30 cap 02/13/19 Unknown Rx Sulfamethoxazole/Trimethoprim 1 each PO BID #20 tablet 12/16/19 Unknown Rx [Bactrim DS TAB] Allergies Allergy/AdvReac Type Severity Reaction Status Date / Time latex Allergy Unknown Verified 12/16/19 13:43 ED Review of Systems ROS: Stated complaint: NEEDS REYES INSERTED Other details as noted in HPI Comment: All other systems reviewed and negative ED Past Medical Hx - Past Medical History Previous Medical History?: Yes Hx Hypertension: Yes Hx Diabetes: Yes Hx Seizures: Yes Additional medical history: Spina bifida; patient's has reyes cath, MORBID OBESITY - Surgical History Past Surgical History?: Yes Additional Surgical History: Left below knee amputation - Social History Smoking Status: Never Smoker Substance Use Type: Alcohol - Medications Home Medications: Home Medications Medication Instructions Recorded Confirmed Last Taken Type Insulin Lispro [Humalog 100 3 units SQ AC 08/13/15 08/13/15 08/13/15 History UNITS/ML Kwikpen] Levemir Flextouch 30 units SQ HS 08/13/15 08/13/15 08/12/15 History lisinopriL [Zestril TAB] 10 mg PO QDAY 08/13/15 08/13/15 08/13/15 History metFORMIN [Glucophage] 500 mg PO BID 08/13/15 08/13/15 08/13/15 History Sulfamethoxazole/Trimethoprim 1 each PO BID #14 tablet 10/14/15 Unknown Rx [Bactrim DS TAB] cephALEXin [Keflex] 500 mg PO Q12HR #40 cap 10/14/15 Unknown Rx Sulfamethoxazole/Trimethoprim 1 each PO BID 7 Days #14 tablet 08/18/17 Unknown Rx [Bactrim DS TAB] Ondansetron [Zofran Odt] 4 mg PO Q8HR PRN #14 tab.rapdis 07/29/18 Unknown Rx levoFLOXacin [Levaquin TAB] 500 mg PO QDAY #7 tablet 07/29/18 Unknown Rx traMADoL [Ultram 50 MG tab] 50 mg PO Q4HR PRN #14 tablet 07/29/18 Unknown Rx cephALEXin [Keflex] 500 mg PO TID 10 Days #30 cap 02/13/19 Unknown Rx Sulfamethoxazole/Trimethoprim 1 each PO BID #20 tablet 12/16/19 Unknown Rx [Bactrim DS TAB] ED Physical Exam - General Limitations: Physical Limitation General appearance: alert, in no apparent distress - Head Head exam: Present: atraumatic, normocephalic - Eye Eye exam: Present: normal appearance, PERRL, EOMI Pupils: Present: normal accommodation - ENT ENT exam: Present: normal exam, normal orophraynx, mucous membranes moist, TM's normal bilaterally - Neck Neck exam: Present: normal inspection, full ROM - Respiratory Respiratory exam: Present: normal lung sounds bilaterally. Absent: respiratory distress, wheezes, rales, chest wall tenderness, accessory muscle use, decreased breath sounds - Cardiovascular Cardiovascular Exam: Present: regular rate, normal rhythm. Absent: systolic murmur, diastolic murmur, rubs, gallop - GI/Abdominal GI/Abdominal exam: Present: soft, normal bowel sounds. Absent: tenderness - Extremities Exam Extremities exam: Present: normal inspection - Back Exam Back exam: Present: normal inspection - Neurological Exam Neurological exam: Present: alert, oriented X3 - Psychiatric Psychiatric exam: Present: normal affect, normal mood - Skin Skin exam: Present: warm, dry, intact, normal color. Absent: rash ED Course Vital Signs 12/16/19 13:33 Temperature 98.3 F Pulse Rate 77 Respiratory 17 Rate Blood Pressure 153/56 O2 Sat by Pulse 93 Oximetry ED Medical Decision Making - Medical Decision Making 34-year-old female chronic Reyes indwelling catheter which became dislodged. The Reyes catheter was replaced while in the emergency department and she was also started on antibiotics for her dysuria. Is been advised to follow-up with her usual for her urologist for further evaluation and treatment options Critical care attestation.: If time is entered above; I have spent that time in minutes in the direct care of this critically ill patient, excluding procedure time. ED Disposition Clinical Impression: Reyes catheter problem, Encounter for Reyes catheter replacement, Dysuria Disposition: TO HOME OR SELFCARE Is pt being admited?: No Does the pt Need Aspirin: No Condition: Stable Instructions: Dysuria (ED), Reyes Catheter Placement and Care (ED) Prescriptions: Sulfamethoxazole/Trimethoprim [Bactrim DS TAB] 1 each PO BID #20 tablet Referrals: PRIMARY CAREMD [Referring] - 3-5 Days (Please follow-up with a urologist at the [facility]) PATRICIO ZAVALAYJUNE [Provider Group] - 3-5 Days (This is an alternative urology group should you so need need to follow-up with another provider)
== END 2019-12-16 15:45 | disposition home or self-care (01) ==
LOC: ED 12:56
DX: T83.091A Other mechanical complication of indwelling urethral catheter, initial encounter (principal); R30.0 Dysuria; I10 Essential (primary) hypertension; E11.9 Type 2 diabetes mellitus without complications; R56.9 Unspecified convulsions; Z89.512 Acquired absence of left leg below knee; Z79.4 Long term (current) use of insulin; Z79.84 Long term (current) use of oral hypoglycemic drugs; Z79.899 Other long term (current) drug therapy; Z91.040 Latex allergy status; X58.XXXA Exposure to other specified factors, initial encounter; Y93.89 Activity, other specified; Y92.89 Other specified places as the place of occurrence of the external cause; Y99.8 Other external cause status
CPT/HCPCS: 51702; 99282

== ENCOUNTER 2020-03-14 09:44 | Emergency (ER) | payer MEDICAID ==
[2020-03-14 09:52] VITALS: BP 151/86
--- NOTE | 2020-03-14 11:56 | Emergency Department Report ---
ED General Adult HPI - General Chief complaint: Medical Clearance Stated complaint: NEED A MERCADO CATHETER Time Seen by Provider: 03/14/20 11:43 Source: patient Mode of arrival: Wheelchair Limitations: No Limitations - History of Present Illness Initial comments: Patient is 34 years old morbidly obese female with history of chronic urinary incontinence. Patient is using Mercado catheter regularly. Patient presented to the ER asking for replacing her Mercado catheter because it is leaking. Patient stated that she has a home health nurse that help out with that however she is unable to get in touch with her recently. Patient denies any other symptoms specifically no fever, chills, nausea or vomiting. - Related Data Home Medications Medication Instructions Recorded Confirmed Last Taken Insulin Lispro [Humalog 100 3 units SQ AC 08/13/15 08/13/15 08/13/15 UNITS/ML Kwikpen] Levemir Flextouch 30 units SQ HS 08/13/15 08/13/15 08/12/15 lisinopriL [Zestril TAB] 10 mg PO QDAY 08/13/15 08/13/15 08/13/15 metFORMIN [Glucophage] 500 mg PO BID 08/13/15 08/13/15 08/13/15 Previous Rx's Medication Instructions Recorded Last Taken Type Sulfamethoxazole/Trimethoprim 1 each PO BID #14 tablet 10/14/15 Unknown Rx [Bactrim DS TAB] cephALEXin [Keflex] 500 mg PO Q12HR #40 cap 10/14/15 Unknown Rx Sulfamethoxazole/Trimethoprim 1 each PO BID 7 Days #14 tablet 08/18/17 Unknown Rx [Bactrim DS TAB] Ondansetron [Zofran Odt] 4 mg PO Q8HR PRN #14 tab.rapdis 07/29/18 Unknown Rx levoFLOXacin [Levaquin TAB] 500 mg PO QDAY #7 tablet 07/29/18 Unknown Rx traMADoL [Ultram 50 MG tab] 50 mg PO Q4HR PRN #14 tablet 07/29/18 Unknown Rx cephALEXin [Keflex] 500 mg PO TID 10 Days #30 cap 02/13/19 Unknown Rx Sulfamethoxazole/Trimethoprim 1 each PO BID #20 tablet 12/16/19 Unknown Rx [Bactrim DS TAB] cephALEXin [Keflex] 500 mg PO Q12HR #21 cap 01/31/20 Unknown Rx Allergies Allergy/AdvReac Type Severity Reaction Status Date / Time latex Allergy Unknown Verified 02/23/20 09:46 ED Review of Systems ROS: Stated complaint: NEED A MERCADO CATHETER Other details as noted in HPI Comment: All other systems reviewed and negative Constitutional: denies: chills, fever Respiratory: denies: cough, shortness of breath Cardiovascular: denies: chest pain Gastrointestinal: denies: abdominal pain Genitourinary: other (Urinary incontinence) ED Past Medical Hx - Past Medical History Hx Hypertension: Yes Hx Diabetes: Yes Hx Seizures: Yes Additional medical history: Spina bifida; patient's has mercado cath, MORBID OBESITY - Surgical History Additional Surgical History: Left below knee amputation - Social History Smoking Status: Never Smoker - Medications Home Medications: Home Medications Medication Instructions Recorded Confirmed Last Taken Type Insulin Lispro [Humalog 100 3 units SQ AC 08/13/15 08/13/15 08/13/15 History UNITS/ML Kwikpen] Levemir Flextouch 30 units SQ HS 08/13/15 08/13/15 08/12/15 History lisinopriL [Zestril TAB] 10 mg PO QDAY 08/13/15 08/13/15 08/13/15 History metFORMIN [Glucophage] 500 mg PO BID 08/13/15 08/13/15 08/13/15 History Sulfamethoxazole/Trimethoprim 1 each PO BID #14 tablet 10/14/15 Unknown Rx [Bactrim DS TAB] cephALEXin [Keflex] 500 mg PO Q12HR #40 cap 10/14/15 Unknown Rx Sulfamethoxazole/Trimethoprim 1 each PO BID 7 Days #14 tablet 08/18/17 Unknown Rx [Bactrim DS TAB] Ondansetron [Zofran Odt] 4 mg PO Q8HR PRN #14 tab.rapdis 07/29/18 Unknown Rx levoFLOXacin [Levaquin TAB] 500 mg PO QDAY #7 tablet 07/29/18 Unknown Rx traMADoL [Ultram 50 MG tab] 50 mg PO Q4HR PRN #14 tablet 07/29/18 Unknown Rx cephALEXin [Keflex] 500 mg PO TID 10 Days #30 cap 02/13/19 Unknown Rx Sulfamethoxazole/Trimethoprim 1 each PO BID #20 tablet 12/16/19 Unknown Rx [Bactrim DS TAB] cephALEXin [Keflex] 500 mg PO Q12HR #21 cap 01/31/20 Unknown Rx ED Physical Exam - General Limitations: No Limitations General appearance: alert, in no apparent distress - ENT ENT exam: Present: normal exam - Neck Neck exam: Present: normal inspection - Respiratory Respiratory exam: Present: normal lung sounds bilaterally - Cardiovascular Cardiovascular Exam: Present: regular rate, normal rhythm, normal heart sounds - GI/Abdominal GI/Abdominal exam: Present: soft, normal bowel sounds. Absent: distended, tenderness, guarding, rebound, rigid - Extremities Exam Extremities exam: Present: normal inspection, normal capillary refill - Back Exam Back exam: Present: normal inspection, full ROM. Absent: CVA tenderness (R), CVA tenderness (L) - Neurological Exam Neurological exam: Present: alert, oriented X3, CN II-XII intact - Skin Skin exam: Present: warm, intact, normal color ED Course Vital Signs 03/14/20 09:50 Temperature 97.7 F Pulse Rate 79 Respiratory 18 Rate Blood Pressure 151/86 O2 Sat by Pulse 93 Oximetry ED Medical Decision Making - Medical Decision Making Patient is 34 years old morbidly obese female with history of chronic urinary incontinence. Patient is using Mercado catheter regularly. Patient presented to the ER asking for replacing her Mercado catheter because it is leaking. Patient stated that she has a home health nurse that help out with that however she is unable to get in touch with her recently. Patient denies any other symptoms specifically no fever, chills, nausea or vomiting. Mercado replaced in the ER with no complication. Critical care attestation.: If time is entered above; I have spent that time in minutes in the direct care of this critically ill patient, excluding procedure time. ED Disposition Clinical Impression: Urinary incontinence, Mercado catheter problem Disposition: DC-01 TO HOME OR SELFCARE Is pt being admited?: No Condition: Stable Instructions: Mercado Catheter Placement and Care (ED) Referrals: PRIMARY CARE,MD [Primary Care Provider] - 3-5 Days
== END 2020-03-14 12:35 | disposition home or self-care (01) ==
LOC: ED 09:44
DX: R32 Unspecified urinary incontinence (principal); I10 Essential (primary) hypertension; E11.9 Type 2 diabetes mellitus without complications; Z86.69 Personal history of other diseases of the nervous system and sense organs; Z79.899 Other long term (current) drug therapy; Z91.013 Allergy to seafood; Z98.890 Other specified postprocedural states
CPT/HCPCS: 51702; 99282

== ENCOUNTER 2020-04-13 10:09 | Emergency (ER) | payer MEDICAID ==
--- NOTE | 2020-04-13 11:45 | Emergency Department Report ---
ED General Adult HPI - General Chief complaint: Tube Replacement Stated complaint: REYES LEAKING Time Seen by Provider: 04/13/20 11:17 Source: patient Mode of arrival: Ambulatory Limitations: No Limitations - History of Present Illness Initial comments: This is a 34-year-old female nontoxic, well nourished in appearance, no acute signs of distress presents to the ED with c/o of Reyes catheter leakage. Patient has a history of urinary incontinence and has a catheter placed. Patient states does have a urologist follow-up in May due to no availa bilities. Patient otherwise denies any symptoms. Denies any flank pain, headache, stiff neck, numbness, tingling, abdominal pain or pelvic pain. -: days(s) Severity scale (0 -10): 0 Associated Symptoms: denies other symptoms. denies: confusion, chest pain, cough, diaphoresis, fever/chills, headaches, loss of appetite, malaise, nausea/vomiting, rash, seizure, shortness of breath, syncope, weakness Treatments Prior to Arrival: none - Related Data Home Medications Medication Instructions Recorded Confirmed Last Taken Insulin Lispro [Humalog 100 3 units SQ AC 08/13/15 08/13/15 08/13/15 UNITS/ML Kwikpen] Levemir Flextouch 30 units SQ HS 08/13/15 08/13/15 08/12/15 lisinopriL [Zestril TAB] 10 mg PO QDAY 08/13/15 08/13/15 08/13/15 metFORMIN [Glucophage] 500 mg PO BID 08/13/15 08/13/15 08/13/15 Previous Rx's Medication Instructions Recorded Last Taken Type Sulfamethoxazole/Trimethoprim 1 each PO BID #14 tablet 10/14/15 Unknown Rx [Bactrim DS TAB] cephALEXin [Keflex] 500 mg PO Q12HR #40 cap 10/14/15 Unknown Rx Sulfamethoxazole/Trimethoprim 1 each PO BID 7 Days #14 tablet 08/18/17 Unknown Rx [Bactrim DS TAB] Ondansetron [Zofran Odt] 4 mg PO Q8HR PRN #14 tab.rapdis 07/29/18 Unknown Rx levoFLOXacin [Levaquin TAB] 500 mg PO QDAY #7 tablet 07/29/18 Unknown Rx traMADoL [Ultram 50 MG tab] 50 mg PO Q4HR PRN #14 tablet 07/29/18 Unknown Rx cephALEXin [Keflex] 500 mg PO TID 10 Days #30 cap 02/13/19 Unknown Rx Sulfamethoxazole/Trimethoprim 1 each PO BID #20 tablet 12/16/19 Unknown Rx [Bactrim DS TAB] cephALEXin [Keflex] 500 mg PO Q12HR #21 cap 01/31/20 Unknown Rx Allergies Allergy/AdvReac Type Severity Reaction Status Date / Time latex Allergy Unknown Verified 04/13/20 10:41 ED Review of Systems ROS: Stated complaint: REYES LEAKING Other details as noted in HPI Constitutional: denies: chills, fever Eyes: denies: eye pain, eye discharge, vision change ENT: denies: ear pain, throat pain Respiratory: denies: cough, shortness of breath, wheezing Cardiovascular: denies: chest pain, palpitations Endocrine: no symptoms reported Gastrointestinal: denies: abdominal pain, nausea, diarrhea Genitourinary: denies: urgency, dysuria, discharge Musculoskeletal: denies: back pain, joint swelling, arthralgia Skin: denies: rash, lesions Neurological: denies: headache, weakness, paresthesias Psychiatric: denies: anxiety, depression Hematological/Lymphatic: denies: easy bleeding, easy bruising ED Past Medical Hx - Past Medical History Previous Medical History?: Yes Hx Hypertension: Yes Hx Diabetes: Yes Hx Seizures: Yes Additional medical history: Spina bifida; patient's has reyes cath, MORBID OBESITY - Surgical History Past Surgical History?: Yes Additional Surgical History: Left below knee amputation - Social History Smoking Status: Never Smoker Substance Use Type: None - Medications Home Medications: Home Medications Medication Instructions Recorded Confirmed Last Taken Type Insulin Lispro [Humalog 100 3 units SQ AC 08/13/15 08/13/15 08/13/15 History UNITS/ML Kwikpen] Levemir Flextouch 30 units SQ HS 08/13/15 08/13/15 08/12/15 History lisinopriL [Zestril TAB] 10 mg PO QDAY 08/13/15 08/13/15 08/13/15 History metFORMIN [Glucophage] 500 mg PO BID 08/13/15 08/13/15 08/13/15 History Sulfamethoxazole/Trimethoprim 1 each PO BID #14 tablet 10/14/15 Unknown Rx [Bactrim DS TAB] cephALEXin [Keflex] 500 mg PO Q12HR #40 cap 10/14/15 Unknown Rx Sulfamethoxazole/Trimethoprim 1 each PO BID 7 Days #14 tablet 08/18/17 Unknown Rx [Bactrim DS TAB] Ondansetron [Zofran Odt] 4 mg PO Q8HR PRN #14 tab.rapdis 07/29/18 Unknown Rx levoFLOXacin [Levaquin TAB] 500 mg PO QDAY #7 tablet 07/29/18 Unknown Rx traMADoL [Ultram 50 MG tab] 50 mg PO Q4HR PRN #14 tablet 07/29/18 Unknown Rx cephALEXin [Keflex] 500 mg PO TID 10 Days #30 cap 02/13/19 Unknown Rx Sulfamethoxazole/Trimethoprim 1 each PO BID #20 tablet 12/16/19 Unknown Rx [Bactrim DS TAB] cephALEXin [Keflex] 500 mg PO Q12HR #21 cap 01/31/20 Unknown Rx ED Physical Exam - General Limitations: No Limitations General appearance: alert, in no apparent distress - Head Head exam: Present: atraumatic, normocephalic - Neck Neck exam: Present: normal inspection, full ROM - Respiratory Respiratory exam: Absent: respiratory distress - Cardiovascular Cardiovascular Exam: Present: regular rate - GI/Abdominal GI/Abdominal exam: Present: soft, normal bowel sounds. Absent: distended, tenderness, guarding, rebound, rigid, diminished bowel sounds - Neurological Exam Neurological exam: Present: alert, oriented X3 - Psychiatric Psychiatric exam: Present: normal affect, normal mood - Skin Skin exam: Present: warm, dry, intact, normal color. Absent: rash ED Course Vital Signs 04/13/20 10:34 Temperature 98.3 F Pulse Rate 89 Respiratory 20 Rate Blood Pressure 153/96 O2 Sat by Pulse 95 Oximetry - Reevaluation(s) Reevaluation #1: 04/13/20 11:47 Patient is speaking in full sentences with no signs of distress noted. ED Medical Decision Making - Medical Decision Making 34-year-old female that presents with urinary incontinence with Reyes change. Patient is stable and was examined by me. Reyes change has been performed by RN. Patient tolerated well. Good urine output. Patient was instructed to follow-up with a primary care doctor in 3-5 days or if symptoms worsen and continue return to emergency room as soon as possible. At time of discharge, the patient does not seem toxic or ill in appearance. No acute signs of distress noted. Patient agrees to discharge treatment plan of care. No further questions noted by the patient. Critical care attestation.: If time is entered above; I have spent that time in minutes in the direct care of this critically ill patient, excluding procedure time. ED Disposition Clinical Impression: Urinary catheter (Reyes) change required Disposition: - TO HOME OR SELFCARE Is pt being admited?: No Does the pt Need Aspirin: No Condition: Stable Instructions: Reyes Catheter Placement and Care (ED) Additional Instructions: Follow-up with a primary care doctor in 3-5 days or if symptoms worsen and continue return to emergency room as soon as possible. Referrals: PRIMARY CAREMD [Referring] - 3-5 Days JAIDA SAVAGE MD [Staff Physician] - 3-5 Days RENEE SANCHEZ MD [Staff Physician] - 3-5 Days [facility] [Provider Group] - 3-5 Days
[2020-04-13 11:46] VITALS: BP 153/96
== END 2020-04-13 12:30 | disposition home or self-care (01) ==
LOC: ED 10:09
DX: T83.038A Leakage of other urinary catheter, initial encounter (principal); R32 Unspecified urinary incontinence; I10 Essential (primary) hypertension; E11.9 Type 2 diabetes mellitus without complications; R56.9 Unspecified convulsions; Z89.512 Acquired absence of left leg below knee; Z79.4 Long term (current) use of insulin; Z79.84 Long term (current) use of oral hypoglycemic drugs; Z79.899 Other long term (current) drug therapy; Z91.040 Latex allergy status; Y92.89 Other specified places as the place of occurrence of the external cause
CPT/HCPCS: 51702; 99281

== ENCOUNTER 2020-05-09 10:54 | Emergency (ER) | payer MEDICAID ==
--- NOTE | 2020-05-09 13:08 | Emergency Department Report ---
ED General Adult HPI - General Chief complaint: Urogenital-Female Stated complaint: POSSIBLE UTI AND MERCADO Time Seen by Provider: 05/09/20 12:27 Source: patient Mode of arrival: Wheelchair Limitations: No Limitations - History of Present Illness Initial comments: Patient presents to the emergency department with a chief complaint of possible UTI. Patient states she has had an indwelling Mercado for years due to issues with her bladder and used to have it changed by home health care but she lost the services recently. Patient denies any abdominal pain or nausea vomiting. -: unknown Severity scale (0 -10): 0 Consistency: constant Improves with: none Worsens with: none Associated Symptoms: denies other symptoms Treatments Prior to Arrival: none - Related Data Home Medications Medication Instructions Recorded Confirmed Last Taken Insulin Lispro [Humalog 100 3 units SQ AC 08/13/15 08/13/15 08/13/15 UNITS/ML Kwikpen] Levemir Flextouch 30 units SQ HS 08/13/15 08/13/15 08/12/15 lisinopriL [Zestril TAB] 10 mg PO QDAY 08/13/15 08/13/15 08/13/15 metFORMIN [Glucophage] 500 mg PO BID 08/13/15 08/13/15 08/13/15 Previous Rx's Medication Instructions Recorded Last Taken Type Sulfamethoxazole/Trimethoprim 1 each PO BID #14 tablet 10/14/15 Unknown Rx [Bactrim DS TAB] cephALEXin [Keflex] 500 mg PO Q12HR #40 cap 10/14/15 Unknown Rx Sulfamethoxazole/Trimethoprim 1 each PO BID 7 Days #14 tablet 08/18/17 Unknown Rx [Bactrim DS TAB] Ondansetron [Zofran Odt] 4 mg PO Q8HR PRN #14 tab.rapdis 07/29/18 Unknown Rx levoFLOXacin [Levaquin TAB] 500 mg PO QDAY #7 tablet 07/29/18 Unknown Rx traMADoL [Ultram 50 MG tab] 50 mg PO Q4HR PRN #14 tablet 07/29/18 Unknown Rx cephALEXin [Keflex] 500 mg PO TID 10 Days #30 cap 02/13/19 Unknown Rx Sulfamethoxazole/Trimethoprim 1 each PO BID #20 tablet 12/16/19 Unknown Rx [Bactrim DS TAB] cephALEXin [Keflex] 500 mg PO Q12HR #21 cap 01/31/20 Unknown Rx cephALEXin [Keflex] 500 mg PO BID #14 capsule 05/09/20 Unknown Rx Allergies Allergy/AdvReac Type Severity Reaction Status Date / Time latex Allergy Unknown Verified 04/13/20 10:41 ED Review of Systems ROS: Stated complaint: POSSIBLE UTI AND MERCADO Other details as noted in HPI Comment: All other systems reviewed and negative Constitutional: denies: chills, fever Eyes: denies: eye pain, eye discharge, vision change ENT: denies: ear pain, throat pain Respiratory: denies: cough, shortness of breath, wheezing Cardiovascular: denies: chest pain, palpitations Endocrine: no symptoms reported Gastrointestinal: denies: abdominal pain, nausea, diarrhea Genitourinary: denies: urgency, dysuria, discharge Musculoskeletal: denies: back pain, joint swelling, arthralgia Skin: denies: rash, lesions Neurological: denies: headache, weakness, paresthesias Psychiatric: denies: anxiety, depression Hematological/Lymphatic: denies: easy bleeding, easy bruising ED Past Medical Hx - Past Medical History Hx Hypertension: Yes Hx Diabetes: Yes Hx Seizures: Yes Additional medical history: Spina bifida; patient's has mercado cath, MORBID OBESITY - Surgical History Additional Surgical History: Left below knee amputation - Social History Smoking Status: Never Smoker - Medications Home Medications: Home Medications Medication Instructions Recorded Confirmed Last Taken Type Insulin Lispro [Humalog 100 3 units SQ AC 08/13/15 08/13/15 08/13/15 History UNITS/ML Kwikpen] Levemir Flextouch 30 units SQ HS 08/13/15 08/13/15 08/12/15 History lisinopriL [Zestril TAB] 10 mg PO QDAY 08/13/15 08/13/15 08/13/15 History metFORMIN [Glucophage] 500 mg PO BID 08/13/15 08/13/15 08/13/15 History Sulfamethoxazole/Trimethoprim 1 each PO BID #14 tablet 10/14/15 Unknown Rx [Bactrim DS TAB] cephALEXin [Keflex] 500 mg PO Q12HR #40 cap 10/14/15 Unknown Rx Sulfamethoxazole/Trimethoprim 1 each PO BID 7 Days #14 tablet 08/18/17 Unknown Rx [Bactrim DS TAB] Ondansetron [Zofran Odt] 4 mg PO Q8HR PRN #14 tab.rapdis 07/29/18 Unknown Rx levoFLOXacin [Levaquin TAB] 500 mg PO QDAY #7 tablet 07/29/18 Unknown Rx traMADoL [Ultram 50 MG tab] 50 mg PO Q4HR PRN #14 tablet 07/29/18 Unknown Rx cephALEXin [Keflex] 500 mg PO TID 10 Days #30 cap 02/13/19 Unknown Rx Sulfamethoxazole/Trimethoprim 1 each PO BID #20 tablet 12/16/19 Unknown Rx [Bactrim DS TAB] cephALEXin [Keflex] 500 mg PO Q12HR #21 cap 01/31/20 Unknown Rx cephALEXin [Keflex] 500 mg PO BID #14 capsule 05/09/20 Unknown Rx ED Physical Exam - General Limitations: No Limitations General appearance: alert, in no apparent distress - Head Head exam: Present: atraumatic, normocephalic - Eye Eye exam: Present: normal appearance, PERRL - ENT ENT exam: Present: mucous membranes moist - Neck Neck exam: Present: normal inspection - Respiratory Respiratory exam: Present: normal lung sounds bilaterally. Absent: respiratory distress - Cardiovascular Cardiovascular Exam: Present: regular rate, normal rhythm. Absent: systolic murmur, diastolic murmur, rubs, gallop - GI/Abdominal GI/Abdominal exam: Present: soft, normal bowel sounds. Absent: distended, tenderness - Extremities Exam Extremities exam: Present: normal inspection - Back Exam Back exam: Present: normal inspection - Neurological Exam Neurological exam: Present: alert, oriented X3, CN II-XII intact. Absent: motor sensory deficit - Psychiatric Psychiatric exam: Present: normal affect, normal mood - Skin Skin exam: Present: warm, dry, intact, normal color. Absent: rash ED Course Vital Signs 05/09/20 05/09/20 11:04 14:00 Temperature 98.3 F Pulse Rate 83 88 Respiratory 18 16 Rate Blood Pressure 156/75 Blood Pressure 148/79 [Left] O2 Sat by Pulse 72 L 99 Oximetry ED Medical Decision Making - Lab Data Lab Results 05/09/20 Range/Units Unknown Urine Color Yellow (Yellow) Urine Turbidity Cloudy (Clear) Urine pH 5.0 (5.0-7.0) Ur Specific [place] 1.013 (1.003-1.030) Urine Protein <15 mg/dl (Negative) mg/dL Urine Glucose (UA) Neg (Negative) mg/dL Urine Ketones Neg (Negative) mg/dL Urine Blood Mod (Negative) Urine Nitrite Neg (Negative) Urine Bilirubin Neg (Negative) Urine Urobilinogen < 2.0 (<2.0) mg/dL Ur Leukocyte Esterase Lg (Negative) Urine WBC (Auto) > 182.0 H (0.0-6.0) /HPF Urine RBC (Auto) 12.0 (0.0-6.0) /HPF U Epithel Cells (Auto) 20.0 H (0-13.0) /HPF Urine Bacteria (Auto) 3+ (Negative) /HPF Urine WBC Clumps 3+ /HPF - Medical Decision Making mercado changed Critical care attestation.: If time is entered above; I have spent that time in minutes in the direct care of this critically ill patient, excluding procedure time. ED Disposition Clinical Impression: Encounter for Mercado catheter replacement, UTI (urinary tract infection) Disposition: TO HOME OR SELFCARE Is pt being admited?: No Does the pt Need Aspirin: No Condition: Stable Instructions: Urinary Tract Infection in Women (ED) Additional Instructions: return if worse Prescriptions: cephALEXin [Keflex] 500 mg PO BID #14 capsule Referrals: PRIMARY CAREMD [Primary Care Provider] - 3-5 Days JAIDA SAVAGE MD [Staff Physician] - 3-5 Days Time of Disposition: 15:32
[2020-05-09 14:26] LABS: Bacteria,Urine 3+ /HPF (Negative); Bilirubin,Urine NEG (Negative); Blood,Urine MOD (Negative); Color,Urine Yellow (Yellow); Protein,Urine <15 mg/dL mg/dL (Negative); Urobilinogen,Urine < 2.0 mg/dL (<2.0)
[2020-05-09 14:27] LABS: WBC,Urine > 182.0 /HPF (0.0-6.0)
[2020-05-09 15:18] VITALS: BP 148/79
== END 2020-05-09 16:00 | disposition home or self-care (01) ==
LOC: ED 10:54
DX: N39.0 Urinary tract infection, site not specified (principal); Z46.6 Encounter for fitting and adjustment of urinary device
CPT/HCPCS: 51702; 81001; 99283

== ENCOUNTER 2020-06-17 10:08 | Emergency (ER) | payer MEDICAID ==
[2020-06-17 10:20] VITALS: BP 150/83
--- NOTE | 2020-06-17 12:30 | Emergency Department Report ---
HPI - General Chief Complaint: Urogenital-Female Time Seen by Provider: 06/17/20 12:21 - HPI HPI: Room 23 The patient is a 35-year-old female with history of urinary incontinence presented for Mercado catheter exchange. Patient states is been approximately 30 days since her current indwelling Mercado was placed. She states she came to the emergency department to have it exchanged as urine is leaking around it. Patient denies any history of fever nausea or vomiting. ED Past Medical Hx - Past Medical History Hx Hypertension: Yes Hx Diabetes: Yes Hx Seizures: Yes Additional medical history: Spina bifida; patient's has mercado cath, MORBID OBESITY - Surgical History Additional Surgical History: Left below knee amputation, [employer] [place] [employer] [place] shunt - Family History Family history: no significant - Social History Smoking Status: Never Smoker Substance Use Type: None (Denies illicit drug use), Alcohol (Occasional) - Medications Home Medications: Home Medications Medication Instructions Recorded Confirmed Last Taken Type Insulin Lispro [Humalog 100 3 units SQ AC 08/13/15 08/13/15 08/13/15 History UNITS/ML Kwikpen] Levemir Flextouch 30 units SQ HS 08/13/15 08/13/15 08/12/15 History lisinopriL [Zestril TAB] 10 mg PO QDAY 08/13/15 08/13/15 08/13/15 History metFORMIN [Glucophage] 500 mg PO BID 08/13/15 08/13/15 08/13/15 History Sulfamethoxazole/Trimethoprim 1 each PO BID #14 tablet 10/14/15 Unknown Rx [Bactrim DS TAB] cephALEXin [Keflex] 500 mg PO Q12HR #40 cap 10/14/15 Unknown Rx Sulfamethoxazole/Trimethoprim 1 each PO BID 7 Days #14 tablet 08/18/17 Unknown Rx [Bactrim DS TAB] Ondansetron [Zofran Odt] 4 mg PO Q8HR PRN #14 tab.rapdis 07/29/18 Unknown Rx levoFLOXacin [Levaquin TAB] 500 mg PO QDAY #7 tablet 07/29/18 Unknown Rx traMADoL [Ultram 50 MG tab] 50 mg PO Q4HR PRN #14 tablet 07/29/18 Unknown Rx cephALEXin [Keflex] 500 mg PO TID 10 Days #30 cap 02/13/19 Unknown Rx Sulfamethoxazole/Trimethoprim 1 each PO BID #20 tablet 12/16/19 Unknown Rx [Bactrim DS TAB] cephALEXin [Keflex] 500 mg PO Q12HR #21 cap 01/31/20 Unknown Rx cephALEXin [Keflex] 500 mg PO BID #14 capsule 05/09/20 Unknown Rx levoFLOXacin [Levaquin TAB] 500 mg PO QDAY #10 tablet 06/17/20 Unknown Rx ED Review of Systems ROS: Stated complaint: C LINE NEEDED Other details as noted in HPI Constitutional: denies: fever Eyes: denies: eye pain ENT: denies: throat pain Respiratory: no symptoms reported Cardiovascular: denies: chest pain Endocrine: no symptoms reported Gastrointestinal: denies: nausea, vomiting Genitourinary: other (A Mercado catheter not functioning) Skin: lesions Physical Exam - Physical Exam Vital Signs: Vital Signs 06/17/20 10:17 Temperature 98.2 F Pulse Rate 84 Respiratory 19 Rate Blood Pressure 150/83 [Right] O2 Sat by Pulse 92 Oximetry Physical Exam: GENERAL: The patient is well-developed well-nourished morbidly obese female sitting in wheelchair not appearing to be in acute distress. [] HEENT: Normocephalic. Atraumatic. Extraocular motions are intact. Patient has moist mucous membranes. NECK: Supple. Trachea midline CHEST/LUNGS: Clear to auscultation. There is no respiratory distress noted. HEART/CARDIOVASCULAR: Regular. There is no tachycardia. There is no gallop rub or murmur. ABDOMEN: Abdomen is soft, nontender. Patient has normal bowel sounds. There is no abdominal distention. SKIN: There is no diaphoresis. NEURO: The patient is awake, alert, and oriented. The patient is cooperative. The patient has normal speech MUSCULOSKELETAL: There is no evidence of acute injury. ED Course Vital Signs 06/17/20 10:17 Temperature 98.2 F Pulse Rate 84 Respiratory 19 Rate Blood Pressure 150/83 [Right] O2 Sat by Pulse 92 Oximetry ED Medical Decision Making - Lab Data Laboratory Tests 06/17/20 14:18 Urine Color Yellow Urine Turbidity Cloudy Urine pH 6.0 Ur Specific [place] 1.015 Urine Protein 100 mg/dl Urine Glucose (UA) Neg Urine Ketones Neg Urine Blood Sm Urine Nitrite Neg Urine Bilirubin Neg Urine Urobilinogen 4.0 Ur Leukocyte Esterase Lg Urine WBC (Auto) > 182.0 H Urine RBC (Auto) 25.0 U Epithel Cells (Auto) 1.0 Urine Bacteria (Auto) 1+ - Differential Diagnosis Mercado dysfunction, UTI Critical care attestation.: If time is entered above; I have spent that time in minutes in the direct care of this critically ill patient, excluding procedure time. ED Disposition Clinical Impression: Encounter for Mercado catheter replacement, UTI (urinary tract infection) Disposition: TO HOME OR SELFCARE Is pt being admited?: No Does the pt Need Aspirin: No Condition: Stable Additional Instructions: Return to the emergency department should you develop worsening symptoms, inability to tolerate food or liquids, high fever or any other concerns Prescriptions: levoFLOXacin [Levaquin TAB] 500 mg PO QDAY #10 tablet Referrals: PRIMARY CARE, [Primary Care Provider] - 3-5 Days Time of Disposition: 14:41
[2020-06-17 14:38] LABS: Bacteria,Urine 1+ /HPF (Negative); Bilirubin,Urine NEG (Negative); Blood,Urine SM (Negative); Color,Urine Yellow (Yellow)
[2020-06-17 14:39] LABS: WBC,Urine > 182.0 /HPF (0.0-6.0)
== END 2020-06-17 15:15 | disposition home or self-care (01) ==
LOC: ED 10:08
DX: N39.0 Urinary tract infection, site not specified (principal); R32 Unspecified urinary incontinence; I10 Essential (primary) hypertension; E11.9 Type 2 diabetes mellitus without complications; R56.9 Unspecified convulsions; Z46.6 Encounter for fitting and adjustment of urinary device; Z98.890 Other specified postprocedural states; Z79.4 Long term (current) use of insulin; Z79.2 Long term (current) use of antibiotics; Z79.899 Other long term (current) drug therapy; Z91.040 Latex allergy status
CPT/HCPCS: 51702; 81001

== ENCOUNTER 2020-06-24 09:52 | Emergency (ER) | payer MEDICAID ==
--- NOTE | 2020-06-24 11:46 | Emergency Department Report ---
ED Female HPI - General Chief complaint: Urogenital-Female Stated complaint: MERCADO CATH/INCONTINENCE Time Seen by Provider: 06/24/20 11:34 Source: patient Mode of arrival: Wheelchair Limitations: Physical Limitation - History of Present Illness Initial comments: 35-year-old morbid obese female primarily wheelchair-bound/secondary also with a past medical history of diabetes, hypertension, spina bifida, seizures, and chronic urinary incontinence necessitating chronic Mercado catheter use presents to the hospital with complaints of needing a Mercado catheter inserted. Patient states she lost her home health services several months ago and therefore has been coming to the ER for catheter change. Last visit was June 17. She states that Mercado catheter placed in the ED came out 3 days ago and she now needs another replacement. Patient states she was diagnosed with UTI during last 2 ER visits in April and May. She denies fever or pain. Blood pressure elevated upon arrival. Patient will took her lisinopril 10 mg this a.m. as scheduled and denies headache, chest pain, shortness of breath. Patient states she is in the process of reestablishing her home health services with her primary care doctor - Related Data Home Medications Medication Instructions Recorded Confirmed Last Taken Insulin Lispro [Humalog 100 3 units SQ AC 08/13/15 08/13/15 08/13/15 UNITS/ML Kwikpen] Levemir Flextouch 30 units SQ HS 08/13/15 08/13/15 08/12/15 lisinopriL [Zestril TAB] 10 mg PO QDAY 08/13/15 08/13/15 08/13/15 metFORMIN [Glucophage] 500 mg PO BID 08/13/15 08/13/15 08/13/15 Previous Rx's Medication Instructions Recorded Last Taken Type Sulfamethoxazole/Trimethoprim 1 each PO BID #14 tablet 10/14/15 Unknown Rx [Bactrim DS TAB] cephALEXin [Keflex] 500 mg PO Q12HR #40 cap 10/14/15 Unknown Rx Sulfamethoxazole/Trimethoprim 1 each PO BID 7 Days #14 tablet 08/18/17 Unknown Rx [Bactrim DS TAB] Ondansetron [Zofran Odt] 4 mg PO Q8HR PRN #14 tab.rapdis 07/29/18 Unknown Rx levoFLOXacin [Levaquin TAB] 500 mg PO QDAY #7 tablet 07/29/18 Unknown Rx traMADoL [Ultram 50 MG tab] 50 mg PO Q4HR PRN #14 tablet 07/29/18 Unknown Rx cephALEXin [Keflex] 500 mg PO TID 10 Days #30 cap 02/13/19 Unknown Rx Sulfamethoxazole/Trimethoprim 1 each PO BID #20 tablet 12/16/19 Unknown Rx [Bactrim DS TAB] cephALEXin [Keflex] 500 mg PO Q12HR #21 cap 01/31/20 Unknown Rx cephALEXin [Keflex] 500 mg PO BID #14 capsule 05/09/20 Unknown Rx levoFLOXacin [Levaquin TAB] 500 mg PO QDAY #10 tablet 06/17/20 Unknown Rx cefUROXime [Ceftin] 500 mg PO Q12H 7 Days tablet 06/24/20 Unknown Rx Allergies Allergy/AdvReac Type Severity Reaction Status Date / Time latex Allergy Unknown Verified 06/24/20 13:35 ED Review of Systems ROS: Stated complaint: MERCADO CATH/INCONTINENCE Other details as noted in HPI Comment: All other systems reviewed and negative ED Past Medical Hx - Past Medical History Previous Medical History?: Yes Hx Hypertension: Yes Hx Diabetes: Yes Hx Seizures: Yes Additional medical history: Spina bifida; patient's has mercado cath, MORBID OBESITY - Surgical History Past Surgical History?: Yes Additional Surgical History: Left below knee amputation, [employer] shunt - Social History Smoking Status: Never Smoker Substance Use Type: Alcohol - Medications Home Medications: Home Medications Medication Instructions Recorded Confirmed Last Taken Type Insulin Lispro [Humalog 100 3 units SQ AC 08/13/15 08/13/15 08/13/15 History UNITS/ML Kwikpen] Levemir Flextouch 30 units SQ HS 08/13/15 08/13/15 08/12/15 History lisinopriL [Zestril TAB] 10 mg PO QDAY 08/13/15 08/13/15 08/13/15 History metFORMIN [Glucophage] 500 mg PO BID 08/13/15 08/13/15 08/13/15 History Sulfamethoxazole/Trimethoprim 1 each PO BID #14 tablet 10/14/15 Unknown Rx [Bactrim DS TAB] cephALEXin [Keflex] 500 mg PO Q12HR #40 cap 10/14/15 Unknown Rx Sulfamethoxazole/Trimethoprim 1 each PO BID 7 Days #14 tablet 08/18/17 Unknown Rx [Bactrim DS TAB] Ondansetron [Zofran Odt] 4 mg PO Q8HR PRN #14 tab.rapdis 07/29/18 Unknown Rx levoFLOXacin [Levaquin TAB] 500 mg PO QDAY #7 tablet 07/29/18 Unknown Rx traMADoL [Ultram 50 MG tab] 50 mg PO Q4HR PRN #14 tablet 07/29/18 Unknown Rx cephALEXin [Keflex] 500 mg PO TID 10 Days #30 cap 02/13/19 Unknown Rx Sulfamethoxazole/Trimethoprim 1 each PO BID #20 tablet 12/16/19 Unknown Rx [Bactrim DS TAB] cephALEXin [Keflex] 500 mg PO Q12HR #21 cap 01/31/20 Unknown Rx cephALEXin [Keflex] 500 mg PO BID #14 capsule 05/09/20 Unknown Rx levoFLOXacin [Levaquin TAB] 500 mg PO QDAY #10 tablet 06/17/20 Unknown Rx cefUROXime [Ceftin] 500 mg PO Q12H 7 Days tablet 06/24/20 Unknown Rx ED Physical Exam - General Limitations: Physical Limitation - Other Other exam information: General: No acute distress Head: Atraumatic Eyes: normal appearance ENT: Moist mucous membranes Neck: Normal appearance, no midline tenderness Chest: Clear to auscultation bilaterally CV: Regular rate and rhythm Abdomen: Soft, normal bowel sounds, nontender, nondistended, no rebound or guarding Back: Normal inspection Extremity: Normal inspection, full range of motion Neuro: Alert O x 3, no facial asymmetry, speech clear Psych: Appropriate behavior Skin: No rash ED Course Vital Signs 06/24/20 10:35 Temperature 98.6 F Pulse Rate 80 Respiratory 20 Rate Blood Pressure 172/111 [Right] O2 Sat by Pulse 90 Oximetry ED Medical Decision Making - Medical Decision Making 35-year-old female presents to the hospital for Mercado catheter insertion. Catheter placed in the ED UA and urine culture sent to lab. Patient treated with cefuroxime for uti. Blood pressure improved upon recheck and patient does not endorse hypertensive emergency symptoms Critical Care Time: No Critical care attestation.: If time is entered above; I have spent that time in minutes in the direct care of this critically ill patient, excluding procedure time. ED Disposition Clinical Impression: UTI (urinary tract infection), Encounter for Mercado catheter replacement, Chronic hypertension Disposition: TO HOME OR SELFCARE Is pt being admited?: No Does the pt Need Aspirin: No Condition: Stable Instructions: Hypertension (ED), Urinary Tract Infection, Adult, [id number], Hypertension, Adult, [id number], Indwelling Urinary Catheter Insertion, Care After Additional Instructions: Take the medication as prescribed. Follow-up with your doctor or doctor/clinic provided. Return if symptoms worsen as indicated by your discharge instructions. Prescriptions: cefUROXime [Ceftin] 500 mg PO Q12H 7 Days tablet Referrals: ALEX EID MD [Primary Care Provider] - 3-5 Days Time of Disposition: 13:50
[2020-06-24 13:07] LABS: Bilirubin,Urine NEG (Negative); Blood,Urine MOD (Negative); Color,Urine Yellow (Yellow); Mucus,Urine FEW /HPF; Protein,Urine <15 mg/dL mg/dL (Negative); Urobilinogen,Urine < 2.0 mg/dL (<2.0)
[2020-06-24 13:25] LABS: HCG Qualitative,Urine Negative (Negative)
[2020-06-24 14:32] VITALS: BP 169/97
== END 2020-06-24 14:33 | disposition home or self-care (01) ==
LOC: ED 09:52
DX: N39.0 Urinary tract infection, site not specified (principal); I10 Essential (primary) hypertension; R32 Unspecified urinary incontinence; Z46.6 Encounter for fitting and adjustment of urinary device; E11.9 Type 2 diabetes mellitus without complications; R56.9 Unspecified convulsions; Z98.890 Other specified postprocedural states; Z79.4 Long term (current) use of insulin; Z79.2 Long term (current) use of antibiotics; Z79.899 Other long term (current) drug therapy; Z91.040 Latex allergy status
CPT/HCPCS: 51702; 81001; 81025; 87086